=== PATIENT | male | born 1955 | race Hispanic/Latino ===

== ENCOUNTER 2017-12-01 07:28 | Day surgery (SDC) | payer OTHER ==
[2017-12-01] MEDS ORDERED: Propofol 10 mg/ml Inj (20 ML) ONE (08:46)
--- NOTE | 2017-12-01 08:55 | CP.SDSHP ---
Same Day Surgery H & P - History Proposed Procedure: colonoscopy Pre-Op Diagnosis: rectal bleeding - Previous Medical/Surgical History Neuro: Other (depression/anxiety) Misc: Other (BPH, gastritis, H pylori, diverticulosis) - Allergies Allergies: Allergies No Known Allergies Allergy (Verified 12/01/17 08:15) - Physical Exam Vital Signs: Vital Signs 12/01/17 12/01/17 08:00 08:43 Temperature 98 F 98 F Pulse Rate 80 80 Respiratory 20 20 Rate Blood Pressure 146/67 146/67 O2 Sat by Pulse 100 100 Oximetry Mental Status: Alert & Oriented x3 Neuro: WNL Heart: WNL Lungs: WNL GI: WNL - Impression Impression: rectal bleeding Pt. Evaluated Today:Candidate for Anesthesia & Procedure: Yes - Date & Time Date: 12/01/17 Time: 08:55 Short Stay Discharge - Short Stay Discharge Admitting Diagnosis/Reason for Visit: MELENA / ANEMIA / CHANGE IN BOWEL HABITS Disposition: HOME/ ROUTINE
[2017-12-01 09:30] VITALS: TEMP 99.3
[2017-12-01 11:24] VITALS: O2SAT 99
[2017-12-01 11:26] VITALS: BP 116/65; PULSE 88; RESP 17
== END 2017-12-01 10:40 | disposition home or self-care (01) ==
LOC: C.ENDO 07:28
PROVIDERS: ATTEND Internal Medicine Gastroenterology
DX: K51.50 Left sided colitis without complications (principal); D50.9 Iron deficiency anemia, unspecified; R74.0 Nonspecific elevation of levels of transaminase and lactic acid dehydrogenase [LDH]; N40.0 Benign prostatic hyperplasia without lower urinary tract symptoms; F32.9 Major depressive disorder, single episode, unspecified; F41.9 Anxiety disorder, unspecified; K64.1 Second degree hemorrhoids
CPT/HCPCS: 45380; 87045; 87177; 87209; 87230; 88305; 89055; J2704

== ENCOUNTER 2018-04-19 07:13 | Day surgery (SDC) | payer OTHER ==
[2018-04-18 10:39] VITALS: BMI 26.6
[2018-04-19] MEDS ORDERED: Lactated Ringer's 500 ML IV ONE (07:57)
[2018-04-19] MEDS ORDERED: Propofol 10 mg/ml Inj (20 ML) ONE ×2 (07:59→08:16)
[2018-04-19] MEDS ORDERED: Midazolam 2 MG/2 ML VIAL ONE (08:01)
--- NOTE | 2018-04-19 08:03 | CP.SDSHP ---
Same Day Surgery H & P - History Proposed Procedure: egd Pre-Op Diagnosis: heartburn - Previous Medical/Surgical History Neuro: Other (Depression) Misc: Other (UC, BPH, GERD, Hpylori gastritis, Diverticulosis) - Allergies Allergies: Allergies No Known Allergies Allergy (Verified 04/18/18 10:39) - Physical Exam Vital Signs: Vital Signs 04/19/18 07:24 Temperature 97 F L Pulse Rate 84 Respiratory 20 Rate Blood Pressure 149/70 O2 Sat by Pulse 97 Oximetry Mental Status: Alert & Oriented x3 Neuro: WNL Heart: WNL Lungs: WNL GI: WNL - Impression Impression: heartburn Pt. Evaluated Today:Candidate for Anesthesia & Procedure: Yes - Date & Time Date: 04/19/18 Time: 08:03 Short Stay Discharge - Short Stay Discharge Admitting Diagnosis/Reason for Visit: HEARTBURN / LEFT COLITIS / RECTAL BLEEDING Disposition: HOME/ ROUTINE
[2018-04-19 08:52] VITALS: TEMP 97.4
[2018-04-19 09:11] VITALS: O2SAT 98
[2018-04-19 09:32] VITALS: BP 118/68; PULSE 83; RESP 14
== END 2018-04-19 09:32 | disposition home or self-care (01) ==
LOC: C.ENDO 07:13
PROVIDERS: ATTEND Internal Medicine Gastroenterology
DX: R12 Heartburn (principal); K51.511 Left sided colitis with rectal bleeding; R74.0 Nonspecific elevation of levels of transaminase and lactic acid dehydrogenase [LDH]; K44.9 Diaphragmatic hernia without obstruction or gangrene; K29.70 Gastritis, unspecified, without bleeding
CPT/HCPCS: 43239; 88305; J2001; J2250; J2704; J7120